=== PATIENT | male | born 1990 | race Caucasian/White ===

== ENCOUNTER 2022-12-19 23:59 | Emergency (ER) | payer SELFPAY ==
[~2022-12-19] VITALS: Ht 175.3 cm; Wt 80.0 kg
[2022-12-19 23:59] VITALS: BP 0/0
[2022-12-20] MEDS ORDERED: SODIUM BICARBONATE 8.4% 1 MEQ/ML 50ML SYR IV ONE (07:42)
[2022-12-20] MEDS ORDERED: EPINEPHRINE 0.1MG/ML (1:10,000) 10ML SYR ONE (07:42)
[2022-12-20] MEDS ORDERED: ATROPINE SULFATE 1MG/10ML SYR ONE (07:42)
== END 2022-12-20 03:50 ==
LOC: EDBD 23:59 → ER 23:59
DX: I46.9 Cardiac arrest, cause unspecified (principal); S31.649A Puncture wound with foreign body of abdominal wall, unspecified quadrant with penetration into peritoneal cavity, initial encounter; S41.14 Puncture wound with foreign body of upper arm; X95.9XXA Assault by unspecified firearm discharge, initial encounter; Y93.9 Activity, unspecified; Y92.9 Unspecified place or not applicable; Y99.9 Unspecified external cause status
CPT/HCPCS: 31500; 92950; 99285; J0461; J3490; Z7610